=== PATIENT | male | born 1970 | race Caucasian/White ===

== ENCOUNTER 2018-01-11 11:48 | Inpatient (IN) | payer OTHER ==
[~2018-01-11 11:48] MED LIST: GLYCOPYRROLATE 0.4 MG INJ; NEOSTIGMINE 3 MG/3 ML SYRINGE
[2018-01-11] MEDS ORDERED: SURGIFOAM POWDER 1 GM KIT (14:53)
[2018-01-11] MEDS ORDERED: NALOXONE (0.4 MG/ML) INJ IV (15:00)
[2018-01-11] MEDS ORDERED: HYDROCODONE/APAP (10/325) TAB PO (15:00)
[2018-01-11] MEDS ORDERED: DIPHENHYDRAMINE 50 MG INJ IV ×2 (15:00→18:00)
[2018-01-11] MEDS ORDERED: CEPASTAT LOZENGE MT (15:00)
[2018-01-11] MEDS ORDERED: BISACODYL 10 MG SUPP PR (15:00)
[2018-01-11] MEDS ORDERED: MIDAZOLAM 1 MG/ML 2 ML INJ (15:33)
[2018-01-11] MEDS ORDERED: THROMBIN 5000 UNIT VIAL (16:13)
[2018-01-11] MEDS: BUPIVACAINE 0.5%/EPI (SDV) 30 ML INJ (16:25)
[2018-01-11] MEDS: SURGIFOAM POWDER 1 GM KIT (16:26)
[2018-01-11] MEDS: CA CHLORIDE 10% 10 ML SYRINGE (16:26)
[2018-01-11] MEDS: POLYMYXIN/BACITRACIN 1L IRRIG (16:26)
[2018-01-11] MEDS: HEPARIN 1000 UNITS/ML 10 ML INJ (16:26)
[2018-01-11] MEDS: THROMBIN 5000 UNIT VIAL (16:28)
[2018-01-11] MEDS ORDERED: ONDANSETRON 4 MG INJ (17:21)
[2018-01-11] MEDS ORDERED: PROPOFOL 20 ML (17:27)
[2018-01-11] MEDS ORDERED: ETOMIDATE 20 MG INJ (17:27)
[2018-01-11] MEDS ORDERED: CEFAZOLIN 1 GM INJ (17:27)
[2018-01-11] MEDS ORDERED: LIDOCAINE 2% (SDV) 5 ML INJ (17:27)
[2018-01-11] MEDS ORDERED: ROCURONIUM 50 MG INJ (17:27)
[2018-01-11] MEDS: CEFAZOLIN 1 GM/50 ML (PMX) 50 ML IVPB ×2 (17:57→22:48)
[2018-01-11] MEDS ORDERED: MEPERIDINE 25 MG INJ IV (18:00)
[2018-01-11] MEDS ORDERED: FENTAnyl 50 MCG/ML VIAL IV (18:00)
[2018-01-11] MEDS ORDERED: hydrALAzine 20 MG INJ IV (18:00)
[2018-01-11] MEDS ORDERED: ONDANSETRON 4 MG INJ IV (18:00)
[2018-01-11] MEDS ORDERED: LABETALOL HCL 20MG INJ IV (18:00)
[2018-01-11] MEDS ORDERED: HYDROmorphONE 1 MG/5 ML IV SYRINGE IV ×2 (18:00)
[2018-01-11] MEDS: HYDROmorphONE 0.2 MG/ML PCA IV (18:44)
[2018-01-11] MEDS: DOCUSATE SODIUM 100 MG CAP PO (20:29)
[2018-01-12] MEDS: ONDANSETRON 4 MG INJ IV (00:45)
[2018-01-12] MEDS: D5W-0.45 NACL + KCL 20 MEQ 1,000 ML IV ×2 (00:46→20:28)
[2018-01-12] MEDS: CYCLOBENZAPRINE 10 MG TAB PO ×3 (01:49→20:37)
[2018-01-12 05:40] LABS: ADD MAN DIFF? NO
[2018-01-12 05:43] LABS: WHITE BLOOD COUNT 9.4 10^3/ul (4.8-10.8)
[2018-01-12 05:43] LABS: BASOPHIL # 0.1 10^3/ul (0.0-0.1); BASOPHILS % 0.5 % (0.0-2.0); EOSINOPHILS # 0.1 10^3/ul (0.0-0.5); EOSINOPHILS % 1.2 % (0.0-7.0); HEMATOCRIT 39.9 % (42.0-52.0); HEMOGLOBIN 13.5 g/dl (14.0-18.0); LYMPHOCYTES # 1.2 10^3/ul (0.8-2.9); LYMPHOCYTES % 12.6 % (15.0-51.0); MEAN CORPUSCULAR HEMOGLOBIN 30.3 pg (29.0-33.0); MEAN CORPUSCULAR HGB CONC 33.8 g/dl (32.0-37.0); MEAN CORPUSCULAR VOLUME 89.7 fl (82.0-101.0); MEAN PLATELET VOLUME 9.9 fl (7.4-10.4); MONOCYTES % 10.4 % (0.0-11.0); NEUTROPHILS % 74.9 % (39.0-77.0); PLATELET COUNT 183 10^3/UL (140-415); RED BLOOD COUNT 4.45 10^6/ul (4.70-6.10); RED CELL DISTRIBUTION WIDTH 13.8 % (11.5-14.5)
[2018-01-12] MEDS: CEFAZOLIN 1 GM/50 ML (PMX) 50 ML IVPB (06:15)
[2018-01-12 06:16] LABS: ANION GAP 19 (8-16); BLOOD UREA NITROGEN 18 mg/dl (7-20); CALCIUM 8.8 mg/dl (8.4-10.2); CARBON DIOXIDE 25 mmol/L (21-31); CHLORIDE 101 mmol/L (97-110); CREATININE 1.23 mg/dl (0.61-1.24); GLUCOSE 120 mg/dl (70-220); MAGNESIUM 1.5 mg/dl (1.7-2.5); POTASSIUM 4.1 mmol/L (3.5-5.1); SODIUM 141 mmol/L (135-144)
[2018-01-12] MEDS: VALSARTAN 160 MG TAB PO (08:18)
[2018-01-12] MEDS: AMLODIPINE 10 MG TAB GTB (08:18)
[2018-01-12] MEDS: DOCUSATE SODIUM 100 MG CAP PO ×2 (08:18→20:34)
[2018-01-12] MEDS: HYDROmorphONE 0.2 MG/ML PCA IV (08:21)
[2018-01-12] MEDS: ACETAMINOPHEN 325 MG TAB PO (09:45)
[2018-01-12] MEDS: HYDROCODONE/APAP (10/325) TAB PO ×2 (10:58→15:58)
[2018-01-12] MEDS: HYDROmorphONE 0.5 MG/0.5 ML SYG IV (12:46)
[2018-01-12 16:11] LABS: ADD UMIC YES; UR ASCORBIC ACID NEGATIVE (NEGATIVE); UR BILIRUBIN (Dip) NEGATIVE (NEGATIVE); UR BLOOD (Dip) 1+ mg/dL (NEGATIVE); UR CLARITY CLEAR (CLEAR); UR COLOR STRAW (YELLOW); UR GLUCOSE (Dip) NEGATIVE (NEGATIVE); UR KETONES (Dip) NEGATIVE (NEGATIVE); UR LEUKOCYTE ESTERASE (Dip) NEGATIVE Leu/ul (NEGATIVE); UR NITRITE (Dip) NEGATIVE (NEGATIVE); UR RBC 0 /HPF (0-5); UR SPECIFIC GRAVITY (Dip) 1.009 (1.003-1.030); UR TOTAL PROTEIN (Dip) NEGATIVE (NEGATIVE); UR UROBILINOGEN (Dip) NEGATIVE (NEGATIVE); UR WBC 1 /HPF (0-5)
[2018-01-13] MEDS: HYDROCODONE/APAP (10/325) TAB PO ×2 (05:51→12:35)
[2018-01-13] MEDS: D5W-0.45 NACL + KCL 20 MEQ 1,000 ML IV (06:43)
[2018-01-13] MEDS: AMLODIPINE 10 MG TAB GTB (09:00)
[2018-01-13] MEDS: DOCUSATE SODIUM 100 MG CAP PO (09:03)
[2018-01-13] MEDS: AL HYDROX/MG HYDROX/SIMETH 30 ML CUP PO (09:03)
[2018-01-13] MEDS: VALSARTAN 160 MG TAB PO (09:03)
== END 2018-01-13 15:03 | disposition home or self-care (01) | DRG 519 ==
LOC: REC 11:48 → MS1 19:20
PROVIDERS: Specialist
PROC: 0SB20ZZ Excision of Lumbar Vertebral Disc, Open Approach (ICD-10-PCS; principal; 2018-01-11 14:30)
DX: M51.16 Intervertebral disc disorders with radiculopathy, lumbar region (principal); Z68.42 Body mass index [BMI] 45.0-49.9, adult; E66.01 Morbid (severe) obesity due to excess calories; I10 Essential (primary) hypertension; E78.5 Hyperlipidemia, unspecified
CPT/HCPCS: 72020; 80048; 81001; 82962; 83735; 85025; 86999; 87086; 97110; 97116; 97163; 97530

== ENCOUNTER 2018-07-27 16:48 | Emergency (ER) | payer OTHER ==
[2018-07-27] MEDS: ONDANSETRON (ODT) 4 MG TAB ODT (18:17)
[2018-07-27] MEDS: KETOROLAC 30 MG INJ IM (18:19)
[2018-07-27 18:25] LABS: ADD MAN DIFF? NO
[2018-07-27 18:27] LABS: WHITE BLOOD COUNT 8.9 10^3/ul (4.8-10.8)
[2018-07-27 18:27] LABS: BASOPHIL # 0.1 10^3/ul (0.0-0.1); BASOPHILS % 0.7 % (0.0-2.0); EOSINOPHILS # 0.2 10^3/ul (0.0-0.5); EOSINOPHILS % 2.1 % (0.0-7.0); HEMATOCRIT 42.1 % (42.0-52.0); HEMOGLOBIN 14.3 g/dl (14.0-18.0); LYMPHOCYTES % 22.6 % (15.0-51.0); MEAN CORPUSCULAR HEMOGLOBIN 29.9 pg (29.0-33.0); MEAN CORPUSCULAR VOLUME 87.9 fl (82.0-101.0); MEAN PLATELET VOLUME 9.3 fl (7.4-10.4); MONOCYTE # 0.9 10^3/ul (0.3-0.9); MONOCYTES % 10.1 % (0.0-11.0); NEUTROPHIL # 5.7 10^3/ul (1.6-7.5); NEUTROPHILS % 64.3 % (39.0-77.0); PLATELET COUNT 232 10^3/UL (140-415); RED BLOOD COUNT 4.79 10^6/ul (4.70-6.10)
[2018-07-27 18:30] LABS: ADD UMIC YES; UR ASCORBIC ACID NEGATIVE (NEGATIVE); UR BILIRUBIN (Dip) NEGATIVE (NEGATIVE); UR BLOOD (Dip) 1+ mg/dL (NEGATIVE); UR CLARITY CLEAR (CLEAR); UR COLOR YELLOW (YELLOW); UR GLUCOSE (Dip) NEGATIVE (NEGATIVE); UR KETONES (Dip) NEGATIVE (NEGATIVE); UR LEUKOCYTE ESTERASE (Dip) NEGATIVE Leu/ul (NEGATIVE); UR NITRITE (Dip) NEGATIVE (NEGATIVE); UR RBC 1 /HPF (0-5); UR SPECIFIC GRAVITY (Dip) 1.016 (1.003-1.030); UR TOTAL PROTEIN (Dip) NEGATIVE (NEGATIVE); UR UROBILINOGEN (Dip) NEGATIVE (NEGATIVE); UR WBC 0 /HPF (0-5)
[2018-07-27 18:46] LABS: ALANINE AMINOTRANSFERASE 36 IU/L (13-69); ALBUMIN 5.2 g/dl (3.3-4.9); ALBUMIN/GLOBULIN RATIO 1.23; ALKALINE PHOSPHATASE 102 IU/L (42-121); ANION GAP 12 (5-13); ASPARTATE AMINO TRANSFERASE 27 IU/L (15-46); BILIRUBIN,INDIRECT 0.3 mg/dl (0-1.1); BILIRUBIN,TOTAL 0.3 mg/dl (0.2-1.3); BLOOD UREA NITROGEN 19 mg/dl (7-20); CALCIUM 10.1 mg/dl (8.4-10.2); CARBON DIOXIDE 26 mmol/L (21-31); CHLORIDE 104 mmol/L (97-110); CREATININE 1.13 mg/dl (0.61-1.24); Estimated GFR > 60 mL/min (>60); GLUCOSE 100 mg/dl (70-220); POTASSIUM 3.9 mmol/L (3.5-5.1); SODIUM 142 mmol/L (135-144); TOTAL PROTEIN 9.4 g/dl (6.1-8.1)
== END 2018-07-27 21:19 | disposition home or self-care (01) ==
LOC: FTE 16:48
DX: R10.9 Unspecified abdominal pain (principal); I10 Essential (primary) hypertension; E66.01 Morbid (severe) obesity due to excess calories; Z87.891 Personal history of nicotine dependence
CPT/HCPCS: 36415; 74176; 80053; 81001; 85025; 96372; 99285-25